=== PATIENT | female | born 1990 | race Caucasian/White ===

== ENCOUNTER 2017-01-01 05:09 | Inpatient (IN) | payer MEDICAID ==
[~2017-01-01] VITALS: Ht 156.2 cm; Wt 71.2 kg
[2017-01-01] VITALS (23 sets, daily range): BP systolic 101–131; BP diastolic 58–84; Ht 156.2 cm; Wt 71.2 kg
[~2017-01-01 05:09] MED LIST: MOTRIN600 MG PO; PERCOCET 5/3251 TA1 PO; PRENATAL COMPLE1 TAB PO
[2017-01-01] MEDS ORDERED: PRENATAL COMPLE1 TAB PO (06:13)
[2017-01-01] MEDS ORDERED: MOTRIN600 MG PO (06:13)
[2017-01-01] MEDS ORDERED: PERCOCET 5-3251 TAB PO (06:14)
[2017-01-01 06:25] LABS: HEMATOCRIT 34.6 % (36.0-48.0); HEMOGLOBIN 10.7 g/dL (12-16); MCH 26.4 pg (26.0-34.0); MCHC 30.9 g/dL (31.0-37.0); MCV 85.2 fL (80.0-100.0); RBC 4.06 10x6/uL (4.00-5.40); RDW 15.7 % (11.5-14.5); WBC 8.4 10x3/uL (4.8-10.8)
[2017-01-01 06:26] LABS: PLATELET COUNT 123 10x3/uL (130-400)
[2017-01-01 06:41] LABS: APPEARANCE CLOUDY (CLEAR); BILIRUBIN NEGATIVE (NEGATIVE); COLOR DK YELLOW (YELLOW); GLUCOSE NEGATIVE (NEGATIVE); KETONE NEGATIVE (NEGATIVE); LEUKOCYTE ESTERASE 1+ (NEGATIVE); NITRITE NEGATIVE (NEGATIVE); PROTEIN NEGATIVE (NEGATIVE); UROBILINOGEN NORMAL (NORMAL)
[2017-01-01 06:42] LABS: BACTERIA MODERATE /hpf (NONE SEEN); EPITHELIAL CELLS 0-5 /hpf (0-5); RED CELLS - URINE 0-5 /hpf (0-5)
--- NOTE | 2017-01-01 08:59 | NUR ---
TO ROOM 1274 VIA BED FROM RR. AWAKE AND VERBAL RESPONSES APPRO TO QUESTIONS. IV RT FOREARM WITH LR WITH 20UNITS PITOCIN AT 125CC/HR PER PUMP. NO O2 AT THIS TIME. ABD DRESSING INTACT. FUNDUS UU/FIRM. SMALL LOCHIA PRESENT - PADS CHANGED. O2 SAT 98-100%. AVALOS CATH INTACT WITH CLEAR YELLOW URINE- 300CC. LEGS REMAIN NUMB.
--- NOTE | 2017-01-01 09:12 | NUR ---
SKI LIFT ATTENDANT DILAUDID SETUP AND PT INSTRUCTED ON USE. PT FAMILY AT BEDSIDE.
--- NOTE | 2017-01-01 09:15 | NUR ---
ICE CAP TO ABD AT INCISION. SCD'S ON.
--- NOTE | 2017-01-01 09:16 | NUR ---
GENTLE MASSAGE-FUNDUS. SMALL CLOT X 1 -FUNDUS UU/FIRM.
--- NOTE | 2017-01-01 09:28 | NUR ---
DENIES PAIN- STATES JUST STARTING TO GET FEELING IN LOWER ABD. PADS CHANGED. SMALL TO MOD LOCHIA NOTED ON PAD.
--- NOTE | 2017-01-01 09:50 | NUR ---
SMALL TO MOD LOCHIA WITH SMALL CLOTS NOTED. PADS CHANGED WITH ASSISTANCE Maury WILSON RN. TILTED TO RT SIDE AND PROPPED WITH PILLOWS.
--- NOTE | 2017-01-01 10:06 | NUR ---
PADS WITHOUT BLEEDING AT THIS TIME. TORADOL GIVEN IVP SLOWLY. PT TALKING WITH FAMILY. NO REQUESTS
--- NOTE | 2017-01-01 10:18 | NUR ---
SMALL LOCHIA NOTED ON PAD- FUNDUS UU- NO CLOTS WITH MASSAGE.
--- NOTE | 2017-01-01 10:46 | NUR ---
STATES PAIN IS BETTER AFTER TORADOL. FUNDAL CHECK DONE- PAD NOTED WITH MOD LOCHIA WITH SEVERAL SMALL CLOTS. Maury FAIR RN ALSO IN ROOM. FUNDUS U1 WITH MASSAGE- FIRM. PADS CHANGED AND WILL CONT TO MONITOR.
--- NOTE | 2017-01-01 11:15 | NUR ---
again fundal check- mod to heavy lochia with massage with small clots. pads changed and remedios care done. nursery in room to see pt. fundus uu post massage. nursery in room with infant.
--- NOTE | 2017-01-01 11:27 | NUR ---
phoned office to report bleeding to dr castillo.
--- NOTE | 2017-01-01 11:38 | NUR ---
dr castillo calls unit and states he will be here shortly to evaluate pt.
--- NOTE | 2017-01-01 11:43 | NUR ---
DR MARTIVE TO PT'S BEDSIDE FOR BLOOD CLOT EVACUATION. SVE PER W/MULTIPLE SMALL BLOOD CLOTS REMOVED MANUALLY PER DR FRANCIS. ESTIMATED VOLUME EVACUATED IS 50-100ML PER DR FRANCIS.ORDERS REC'D TO ADMIN 0.2MG METHERGINE IM NOW AND STAT H&H REPEAT.
--- NOTE | 2017-01-01 11:48 | NUR ---
DILAUDID 0.4MG BOLUS FOR PAIN GIVEN. PT STATES THAT WANTS TO KEEP INFANT IN ROOM.
--- NOTE | 2017-01-01 11:58 | NUR ---
INFANT IN MOTHERS ARMS. SIPPING ON WATER. STATES THAT MEDICATION HAS HELPED AND RATES PAIN A 2-3 ON SCALE OF 0-10. ALSO LOOKING AT CELL PHONE.
--- NOTE | 2017-01-01 12:00 | NUR ---
FUNDAL MASSAGE- NO LOCHIA NO CLOTS. INFANT IN ARMS.
--- NOTE | 2017-01-01 12:16 | NUR ---
LAB FINISHES WITH BLOOD DRAW. PT STATES IS SLEEPY AND A BIT DIZZY. FAMILY NOT IN ROOM AT THIS TIME. PT REQUEST BABY GO TO NURSERY. INFANT TO NURSERY. SCANT LOCHIA NOTED ON PAD- PAD CHANGED. FUNDUS MASSAGED- UU/ NO LOCHIA NO CLOTS WITH MASSAGE. LIGHTS IN ROOM DIMMED FOR PT TO SLEEP.
[2017-01-01 12:24] LABS: HEMATOCRIT 31.9 % (36.0-48.0); MCH 26.3 pg (26.0-34.0); MCHC 31.3 g/dL (31.0-37.0); MCV 83.9 fL (80.0-100.0); RDW 15.6 % (11.5-14.5); WBC 10.5 10x3/uL (4.8-10.8)
[2017-01-01 12:27] LABS: PLATELET COUNT 97 10x3/uL (130-400)
--- NOTE | 2017-01-01 12:38 | NUR ---
pt states feels fine- denies dizziness- states sleepy. fundus uu/ no lochia with gentle massage. report phoned to dr lane at office of hemogram results- hgb,hct and plt count- no new orders.
[2017-01-01 13:02] LABS: PLATELET ESTIMATE DECREASED
--- NOTE | 2017-01-01 13:02 | NUR ---
RINGS CALL LIGHT. CO NAUSEA. EMESIS BASIN GIVEN AND COOL CLOTH.
--- NOTE | 2017-01-01 13:07 | NUR ---
SMALL LOCHIA NOTED ON PAD WITH ONE SMALL CLOT POST EMESIS. DEYSI CARE DONE. PT DENIES NAUSEA NOW- STATES I THINK IT WAS THE SOUP. SIPPING ON ICE WATER. POSITION TO LT TILT. ENCOURAGED TO DEEP BREATH AND COUGH.
--- NOTE | 2017-01-01 13:26 | NUR ---
RESTING WITH EYES CLOSED ON LT SIDE- STATES FEELS BETTER. O2 SAT 97.
--- NOTE | 2017-01-01 14:00 | NUR ---
POSITION CHANGED TO SUPINE. SMALL LOCHIA NOTED ON PAD- NO CLOTS. FUNDUS UU/FIRM. GENTLE MASSAGE- NO CLOTS. DEYSI CARE DONE- PAD CHANGED. ICE CAP TO ABD REPLACED. FAMILY AT BEDSIDE.
--- NOTE | 2017-01-01 14:52 | NUR ---
PT TALKING WITH FAMILY. USING AERODYNAMICS ENGINEER AT WILL. DENIES NEEDS AT THIS TIME.
--- NOTE | 2017-01-01 16:00 | NUR ---
AWAKE FAMILY AT BEDSIDE. STATES THAT IS USING [employer] CONSULTANT NEEDED. SMALL LOCHIA NOTED ON PAD- NO CLOTS. FUNDUS UU/FIRM. PADS CHANGED - POSITIONED TO RT SIDE. ENCOURAGED TO COUGH AND DEEP BREATH - USING INCENTIVE JOSE. DR FRANCIS CALLS UNIT AND REPORT GIVEN PER Maury WILSON RN.
--- NOTE | 2017-01-01 17:00 | NUR ---
SMALL LOCHIA NOTED ON PAD. FUNDUS U1/FIRM.
--- NOTE | 2017-01-01 18:37 | NUR ---
RESTING AT THIS TIME- NO REQUESTS.
--- NOTE | 2017-01-01 19:18 | NUR ---
BEDSIDE REPORT REC'D FROM Daniel SHERIDAN RN. PT REC'D IN HIGH FOWLERS POSITION VISITING WITH FAMILY MEMBERS. PT IS NOW DELIVERED AT 0754 VIA REPEAT . VSS. FUNDUS FIRM, U2 WITH SMALL AMT RUBRA LOCHIA TO PERIPAD, NO CLOTS PRESENT. MEDIPORE DRSG TO LOW TRANSVERSE ABD INCISION CLEAN, DRY, AND INTACT WITH NO DRAINAGE NOTED. PT STATES THAT SHE HAS NOT PASSED FLATUS AT THIS TIME BUT THAT SHE IS BELCHING. PAIN CURRENTLY 6/10 INTERMITTENT ABD CRAMPING AND STINGING/BURNING TO ABD INCISION. ICE PACK PRESENT TO INCISION SITE AT THIS TIME. PT USED PLASTIC MOLDER WITH RN AT . DISCUSSED USE OF TORADOL IN ADDITION TO PLASTIC MOLDER, PT STATES THAT PLASTIC MOLDER IS WORKING WELL FOR HER PAIN AND DOES NOT WISH TO USE TORADOL AT THIS TIME. SPRITE GIVEN PER REQUEST, PT STATES THAT SHE WAS UNABLE TO DRINK BROTH D/T BEING TO SALTY. ADDITIONAL JELLO OFFERED AND PT DECLINED AT THIS TIME. PLAN OF CARE DISCUSSED WITH PT, DENIES QUESTIONS AT THIS TIME, AGREEABLE WITH PLAN OF CARE. BED IN LOW POSITION WITH UPPER SIDE RAILS RAISED X2. CL AND PHONE WITHIN REACH. FAMILY REMAINS AT BEDSIDE AND VERY SUPPORTIVE OF PT. PT VERBALIZES UNDERSTANDING OF CL USE.
--- NOTE | 2017-01-01 19:36 | NUR ---
PIV SL LOCKED PER ORDERS. PAIN MEDICATION ORDERS DISCUSSED WITH PT, VERBALIZED UNDERSTANDING. AVALOS D/C'D ALSO WITH 100 MLS IN UROMETER. TOLERATED WELL. INSTRUCTED TO CALL RN USING TO THE CL IF SHE FELT THE NEED TO VOID, VERBALIZED UNDERSTANDING. EXPLAINED TO PT THAT IF SHE HAD NOT BEEN UP TO VOID BY [id number] THAT RN WOULD ASSIST HER OOB TO BATHROOM, VERBALIZED UNDERSTANDING AND AGREEMENT.
--- NOTE | 2017-01-01 19:45 | NUR ---
PT CALLED VIA CL. RN TO BS. PT VOMITING, 50 MLS CLEAR EMESIS IN EMESIS BASIN. PT STATES THAT SHE FEELS THAT THE MAGNESIUM MILL OPERATOR MEDICATION HAD MADE HER VOMIT BECAUSE SHE BEGAN TO FEEL NAUSEOUS AFTER USING THE BUTTON. PAIN NOW 7/10 TO LOWER ABD, PT REQUESTS IVP TORADOL. ZOFRAN AND TORADOL GIVEN SIVP PER ORDER/REQUEST. FAMILY REMAINS AT BEDSIDE, PT DENIES ADDITIONAL NEEDS AT THIS TIME. BED REMAINS IN LOW POSITION WITH UPPER SIDE RAILS RAISED X2. CL AND PHONE WITHIN PT REACH. WILL CONT TO MONITOR AND ASSIST PRN.
--- NOTE | 2017-01-01 20:20 | NUR ---
PAIN REASSESSMENT COMPLETED. PAIN 10/20. PT REPORTS THAT NAUSEA IS ALSO SUBSIDING. ICE WATER GIVEN PER REQUEST. DENIES ADDITIONAL NEEDS. FAMILY MEMBERS REMAIN AT BEDSIDE AND SUPPORTIVE OF PT. BED IN LOW POSITION WITH UPPER SIDE RAILS RAISED X2. CL AND PHONE REMAIN WITHIN PT REACH.
--- NOTE | 2017-01-01 21:22 | NUR ---
PT CALLS VIA CL. RN TO BS. PT STATES THAT SHE NEEDS TO VOID. RN ASSISTED PT TO EDGE OF BED, PT C/O "FEELING DIZZY," HAD PT SIT ON EDGE OF BED WITH HEAD UP, ENCOURAGED TO DEEP BREATHE. PT REPORTS AFTER A MINUTE AND HALF THAT DIZZINESS PASSED. ASSISTED TO STANDING POSITION, PT AMBULATED TO BATHROOM WITHOUT DIFFICULTY. VOIDED 150 MLS IN HAT, 1 DIME SIZED CLOT PRESENT IN HAT POST VOID. ASSISTED PT WITH PERICARE. PANTIES AND CLEAN PERIPAD GIVEN. LINEN AND GOWN CHANGE DONE. PT AMBULATED BACK TO BED WITH RN ASSIST. PAIN 11/20, DISCUSSED PAIN MEDICATION ORDERS, PT DENIES NEED FOR MEDICATION AT THIS TIME. STATES THAT SHE WILL NOTIFY RN IF SHE NEEDS PAIN MEDICATION. PT REQUESTS BE BROUGHT BACK TO ROOM. STATES THAT HER MOTHER IS STAYING WITH HER AND IS GOING TO HELP HER WITH AT THIS TIME. BED IN LOW POSITION, UPPER SIDE RAILS RAISED X2. CL AND PHONE WITHIN REACH.
--- NOTE | 2017-01-01 21:46 | NUR ---
INFANT BROUGHT TO ROOM BY RN. INSTRUCTED PT THAT NEEDS TO BE FED AT 2300 AND NEEDS TO TAKE 30 MLS AND BE BURPED EVERY 10 MLS, VERBALIZED UNDERSTANDING. ENCOURAGED TO CALL RN FOR ASSISTANCE IF NEEDED WITH FEEDING. PT VERBALIZED UNDERSTANDING. WILL CONT TO MONITOR AND ASSIST PRN.
--- NOTE | 2017-01-01 22:50 | NUR ---
ROUNDS MADE. PT IN SEMI FOWLERS POSITION FEEDING AT THIS TIME. PT REPORTS THAT ANYTIME SHE TRIES TO SIT UP SHE BECOMES DIZZY. DENIES HEADACHE. STATES THAT FEELS IT IS BECAUSE SHE IS DROWSY AND THE PAIN MEDICATION FROM THE PIV. INSTRUCTED TO CALL RN WHEN FINISHED FEEDING INFANT, VERBALIZED UNDERSTANDING. RN WILL DRAW CBC AND CHECK ORTHOSTATIC B/P'S ON PT WHEN SHE FINISHES FEEDING .
--- NOTE | 2017-01-01 23:28 | NUR ---
PT CALLS VIA CL. RN TO BS. PT REQUESTS HELP TO FINISH FEEDING D/T BEING UNABLE TO GET TO WAKE UP. NBN RN TO ROOM TO ASSIST WITH FEEDING INFANT. CBC OBTAINED X1 STICK FROM LEFT A/C. ORTHOSTATIC B/P'S CHECKED. PT STATES THAT SHE IS NOT DIZZY AT THIS TIME. FUNDUS FIRM, U2 SMALL AMT RUBRA LOCHIA NOTED TO PERIPAD, NO CLOTS PRESENT. PT DENIES NEED TO VOID AT THIS TIME, BLADDER NONDISTENDED. PT'S MOTHER AT BEDSIDE AND SUPPORTIVE OF PT. BED IN LOW POSITION WITH UPPER SIDE RAILS RAISED X2. CL AND PHONE WITHIN REACH. WILL CONT TO MONITOR AND ASSIST PRN.
[2017-01-01 23:43] LABS: BASOPHILS 0 % (0-2); EOSINOPHILS 0 % (0-7); HEMATOCRIT 30.5 % (36.0-48.0); HEMOGLOBIN 9.7 g/dL (12-16); IMMATURE GRANULOCYTES 0.2 % (0-5); LYMPHOCYTES 6.5 % (15-50); MCH 26.8 pg (26.0-34.0); MCHC 31.8 g/dL (31.0-37.0); MCV 84.3 fL (80.0-100.0); MONOCYTES 4.2 % (2-11); NEUTROPHILS 89.1 % (40-80); PLATELET COUNT 106 10x3/uL (130-400); RBC 3.62 10x6/uL (4.00-5.40); RDW 15.6 % (11.5-14.5); WBC 9.4 10x3/uL (4.8-10.8)
--- NOTE | 2017-01-02 02:08 | NUR ---
CALLS VIA CL. STATES THAT IS FINISHED FEEDING. REQUEST RN TAKE BACK TO NBN. STATES PAIN 3-11/20, TORADOL OFFERED. DECLINED AT THIS TIME STATING SHE WOULD CALL RN IF PAIN INCREASED. PT'S MOTHER REMAINS AT BEDSIDE SLEEPING. BED IN LOW POSITION WITH UPPER SIDE RAILS RAISED X2. CL AND PHONE WITHIN REACH. WILL CONT TO MONITOR AND ASSIST PRN.
--- NOTE | 2017-01-02 03:19 | NUR ---
ROUNDS MADE. PT RESTING WITH EYES CLOSED. RESPIRATIONS REGULAR, NO S/S OF DISTRESS NOTED. PT'S MOTHER REMAINS AT BEDSIDE SLEEPING. BED IN LOW POSITION WITH UPPER SIDE RAILS RAISED X2. CL AND PHONE WITHIN REACH. IN NBN. WILL CONT TO MONITOR AND ASSIST PRN.
--- NOTE | 2017-01-02 04:22 | NUR ---
RN CALLED TO PT BS. PT REQUESTS SALINE FOR CONTACTS. SALINE SOLUTION PROVIDED TO PT AT THIS TIME. PT DENIES ANY FURTHER NEEDS AT THIS TIME. BED IN LOW POSITION, SIDE RAILS UP TIMES 2, CALL LIGHT AND PHONE IN REACH. WILL CONT TO MONITOR PT STATUS.
[2017-01-02 06:03] VITALS: BP 96/58
--- NOTE | 2017-01-02 06:03 | NUR ---
PT UP TO VOID, 800 MLS IN HAT. AMBULATES BACK TO BED WITH MIN ASSIST. PT REPORTS PAIN 7/10 WHILE GETTING UP OOB AND AMBULATING, PAIN 6/10 WITH RETURN TO BED. PT REQUESTS TORADOL FOR PAIN, GIVEN PER ORDERS. PT REPORTS THAT INCISION IS BURNING AND STINGING AND SHE IS HAVING "PERIOD LIKE CRAMPS." NEW ICE PACK GIVEN. SCD'S REAPPLIED. PT POSITIONED TO LEFT SIDE WITH PILLOW PLACED BEHIND BACK FOR SUPPORT. DENIES ADDITIONAL NEEDS. IN CRIB AT BEDSIDE. PT'S MOTHER REMAINS AT BEDSIDE, VERY SUPPORTIVE OF PT AND ASSISTING WITH CARE OF . VSS. FUNDUS FIRM, U2 WITH SMALL AMT RUBRA LOCHIA, NO CLOTS PRESENT. BED IN LOW POSITION WITH UPPER SIDE RAILS RAISED X2. CL AND PHONE WITHIN PT REACH. WILL CONT TO MONITOR AND ASSIST PRN.
[2017-01-02 06:43] LABS: BASOPHILS 0.1 % (0-2); EOSINOPHILS 0.2 % (0-7); HEMATOCRIT 28.1 % (36.0-48.0); IMMATURE GRANULOCYTES 0.2 % (0-5); LYMPHOCYTES 14.6 % (15-50); MCH 26.9 pg (26.0-34.0); MCV 84.1 fL (80.0-100.0); MEAN PLATELET VOLUME 12.3 fL (7.4-10.4); MONOCYTES 4.8 % (2-11); NEUTROPHILS 80.1 % (40-80); PLATELET COUNT 103 10x3/uL (130-400); RBC 3.34 10x6/uL (4.00-5.40); RDW 15.8 % (11.5-14.5); WBC 8.6 10x3/uL (4.8-10.8)
--- NOTE | 2017-01-02 06:43 | NUR ---
PAIN REASSESSMENT COMPLETED. PT RESTING WITH EYES CLOSED, RESPIRATIONS REGULAR, NO S/S OF DISTRESS NOTED. IN CRIB AT BEDSIDE, PT'S MOTHER IN ROOM WATCHING T.V. BED REMAINS IN LOW POSITION WITH UPPER SIDE RAILS RAISED X2. CL AND PHONE WITHIN REACH. WILL CONT TO MONITOR AND ASSIST PRN.
[2017-01-02 07:25] LABS: RAPID PLASMA REAGIN Non Reactive (Non Reactive)
--- NOTE | 2017-01-02 08:00 | NUR ---
AM ASSESSMENT COMPLETED. PT IS SITTING UP IN THE BED, VISITING WITH VISITOR. PT HAS LARGE WHITE DRESSING OVER C/S INCISION, BANDAGE IS C/D/I. PT HAS PERIPANTIES ON, GOWN ON. IV SITE NOTED, NO REDNESS OR SWELLING. PT STATES SHE WOULD LIKE TO TAKE SOME PAIN MEDICATION WHEN SHE GETS UP TO WALK IN THE HALLWAY LATER ON, DENIES NEEDING SOME NOW. IS ASLEEP IN CRIB AT BEDSIDE, NO DISTRESS NOTED. SR UP X 2, CALL LIGHT AND PHONE WITHIN REACH.
[2017-01-02 08:05] VITALS: BP 102/55
--- NOTE | 2017-01-02 09:15 | NUR ---
TO PT'S ROOM. PT IS SITTING UP IN THE BED, ON CELL PHONE. PT DENIES NEEDS AT THIS TIME. DENIES NEEDING PAIN MEDICATION AT THIS TIME. REMAINS ASLEEP IN CRIB AT BEDSIDE. VISITOR REMAINS IN ROOM SLEEPING OF SOFA. SR UP X 2, CALL LIGHT AND PHONE WITHIN REACH.
--- NOTE | 2017-01-02 10:27 | NUR ---
ROOM CHECK, PT REQUESTS PAIN MEDICATION AT THIS TIME, STATES "I WOULD LIKE TO GET IN THE SHOWER WHEN MY COMES BACK, AND WOULD LIKE TO GO AHEAD AND TAKE SOME MEDICINE NOW". MED ADM RECORD REVIEWED WITH PT. PT REQUESTS TO TAKE IBUPROFEN AND NORCO AT THIS TIME. SEE EMAR FOR ALL MED ADM. SR UP X 2, CALL LIGHT AND PHONE WITHIN REACH. FAMILY AT BEDSIDE.
--- NOTE | 2017-01-02 11:00 | NUR ---
PT REQUESTS TO GET UP TO THE BR, SCD'S REMOVED. PT ASSISTED TO BR, GAIT SLOW AND STEADY. PT VOIDS PER SELF WITHOUT DIFFICULTY, PERICARE DONE PER SELF. PT PROVIDED WITH CLEAN GOWN AND LINENS, TOOTHBRUSH/PASTE, AND COMB, SHAMPOO, PERIPADS. BED LINENS CHANGED WITH ASSIST OF David STOKES RN. PT'S IN BR WITH HER FOR SHOWER. SR UP X 2, CALL LIGHT AND PHONE WITHIN REACH. PT'S FAMILY MEMBER IN ROOM WITH INFANT, ALONG WITH PT'S YOUNG SON.
--- NOTE | 2017-01-02 12:00 | NUR ---
DIETARY SERVES LUNCH TRAY TO PT. PT DENIES OTHER NEEDS AT THIS TIME. FAMILY AT BEDSIDE. SR UP X 2, CALL LIGHT AND PHONE WITHIN REACH.
--- NOTE | 2017-01-02 13:20 | NUR ---
BABY TO NSY IN CRIB BY Gerhard WILL RN. PT IS SITTING UP IN THE BED, WATCHING TV. PT DENIES PAIN OR NEEDS AT THIS TIME. PT WISHES TO REST. SR UP X 2, CALL LIGHT AND PHONE WITHIN REACH.
--- NOTE | 2017-01-02 13:45 | NUR ---
TO ROOM, PT DENIES NEEDING PAIN MEDICATION AT THIS TIME. REQUESTS ICE DELROY TO PLACE OVER INCISION. FRESH ICE DELROY PROVIDED. FAMILY REMAINS AT BEDSIDE. SR UP X 2, CALL LIGHT AND PHONE WITHIN REACH.
[2017-01-02 17:00] VITALS: BP 104/63
--- NOTE | 2017-01-02 17:00 | NUR ---
DIETARY SERVES SUPPER TRAY. PT DENIES NEEDING PAIN MEDICATION OR OTHER NEEDS AT THIS TIME. PT IS SITTING UP IN THE BED, HOLDING . FAMILY AT BEDSIDE. PT INQUIRING ABOUT INCISION HAVING A SMALL AMOUNT OF DRAINAGE ON THE PERIPAD THAT SHE HAS PLACED. PT HAS REMOVED DRESSING WHEN SHE TOOK HER SHOWER EARLIER. INCISION C/D/I. NO DRAINAGE NOTED ON PAD OVER INCISION. ABDOMEN PALPATING SOFT. PT DENIES DIFFICULTY VOIDING, DENIES HEAVY VAGINAL BLEEDING, AND DENIES SOB OR DIFFICULTY BREATHING. PT CONTINUES TO HAVE SCD'S ON. SR UP X 2, CALL LIGHT AND PHONE WITHIN REACH.
--- NOTE | 2017-01-02 17:45 | NUR ---
IV SL, FLUSHES EASILY WITHOUT REDNESS, SWELLING, OR PAIN TO IV SITE. PT DENIES NEEDS AT THIS TIME. FAMILY AT BEDSIDE. SR UP X 2, CALL LIGHT AND PHONE WITHIN REACH.
--- NOTE | 2017-01-02 18:50 | NUR ---
REPORT GIVEN TO 7 P SHIFT.
[2017-01-02 19:10] VITALS: BP 109/67
--- NOTE | 2017-01-02 19:10 | NUR ---
THIS RN TO BEDSIDE FOR SHIFT ASSESSMENT. PT AA&O X 4 SITTING HIGH ELIZONDO'S W/INFANT LYING ON PILLIOW AT PT'S SIDE. PT PAIN ASSESSED. PT RATES PAIN 3/10 WHEN NOT MOVING. BREATHSOUNDS CL\=, ABD SOFT, NON DISTENDED, FUNDUS FIRM,U/1, SMALL LOCHIA REPORTED PER PT. LOW TRANSVERSE INCISION W/RITA C/D/I W/OUT DRAINAGE. PT REPORTS ABLE TO VOID W/OUT DIFFICULTY. PEDAL PULSES PRESENT X 2. GENERALIZED EDEMA NOTED TO LOW EXTREMETIES.SCD WRAPS ON BILATERALLY. WRAPS CONNECTED TO PUMP. PUMP IS ON AND FUNCTIONING. SEE FLOW SHEET FOR COMPLETED SHIFT ASSESSMENT. PT INSTRUCTED THAT SHE WILL NEED TO AMBULATE IN THE [place] TONIGHT BEFORE SHE PLANS TO GO TO SLEEP. PT VERBALIZES UNDERSTANDING AND IS AGREEABLE. INFANT HANDED OFF TO VISITOR IN ROOM AT THIS TIME. DINNER TRAY REMOVED FROM ROOM. FRESH ICE WATER SERVED IN [facility]. PT DENIES FURTHER NEEDS AT THIS TIME. BED LOW, SIDE RAILS UP X 2. CALL LIGHT AND PHONE AT BEDSIDE.
--- NOTE | 2017-01-02 19:40 | NUR ---
PT AMBUALTING IN [place] W/VISITOR AT SIDE. BOTH AMBUALTE TO NURSERY AT THIS TIME.
--- NOTE | 2017-01-02 19:50 | NUR ---
PT RETURNING FROM NURSERY AT THIS TIME. PT APPEARS TO BE IN PAIN. PAIN ASSESSED. PT RATES PAIN 8/10. PAIN MEDICATION OFFERED. PT REQUEST TO RECEIVE BOTH MOTRIN 600MG AND NORCO 10/325MG AT THIS TIME. BOTH MEDS TAKEN TO PT'S ROOM AND ADMINISTERED PO. PT'S SIG OTHER AND CHILD IN ROOM AT THIS TIME. PT RETURNS TO BED. DENIES FURTHER NEEDS AT PRESENT.
--- NOTE | 2017-01-02 20:45 | NUR ---
ROUNDS MADE. PT CURRENTLY SITTING UP IN BED W/VISITOR ASSISTING PT W/PUTTING HER HAIR UP. PAIN AND NEEDS ASSESSSED. PT CURRENTLY RATES PAIN 5/10. DENIES NEEDING FURTHER PAIN INTERVENTIONS AT PRESENT. DENIES NEEDS OTHER THAN [facility] MUG FILLED W/FRESH ICE WATER. [facility] NUG FILLED W/FRESH ICE WATER AND PLACED ON BEDSIDE TABLE AT PT'S BEDSIDE.
--- NOTE | 2017-01-02 21:45 | NUR ---
ROUNDS MADE. PT SITTING UP IN BED VISITING W/MULTIPLE GUESTS AT BEDSIDE. PT PAIN AND NEEDS ASSESSED. PT DENIES NEEDS AT PRESENT. REPORTS PAIN "LESS THAN BEFORE". THISR N QUESTIONS LESS THAN 5/10. PT STATES "YES".
[2017-01-03] VITALS: BP 111/60
--- NOTE | 2017-01-03 | NUR ---
ROUNDS MADE. PT SITTING UP IN BED VISITING W/GUEST. ON A PILLOW AT PT'S SIDE. PAIN AND NEEDS ASSESSED. PT REPORTS SHE HAS NO PAIN AT PRESENT. DENIES PERSONAL NEEDS EXCEPT ADDITIONAL ICE WATER. V/S OBTAINED. SEE FLOWSHEET. PT CURRENTLY HAS SCD WRAPS ON BILATERALLY. WRAPS CONNECTED TO PUMP. PUMP IS ON AND FUNCTIONING. INFANT PLACED IN CRIB AND TRANSPORTED TO NURSERY PER REQUEST OF NBN NURSE Sandy CISSE RN
--- NOTE | 2017-01-03 01:51 | NUR ---
INFANT TRANSPORTED VIA CRIB TO PT'S ROOM FOR FEEDING. PT REPOSITIONS SELF UP IN BED. ID BANDS VERIFIED PER PROTOCOL. INFANT PLACED IN PT'S ARMS. BOTTLE PREPARED AND PROVIDED FOR PT TO FEED INFANT. PT DENIES NEEDS AT PRESENT.
--- NOTE | 2017-01-03 04:00 | NUR ---
ROUNDS MADE. PT RESTING QUIETLY W/EYES CLOSED IN HIGH ELIZONDO'S. RESP EVEN. LYING AT PT'S SIDE PROPPED ON A PILLOW. PT AWAKENED TO INFORM HER THAT IS GOING TO BE TRANSPORTED BACK TO NURSERY WHILE PT SLEEPS. PT DENIES PAIN OR NEEDS AT PRESENT. TRANSPORTED VIA CRIB TO [facility].
[2017-01-03 07:15] VITALS: BP 98/57
--- NOTE | 2017-01-03 07:15 | NUR ---
RECEIVED PT SITTING UP IN BED. CARING FOR INFANT. AAO X 3. VSS. HRRR WITHOUT AUDIBLE MURMUR. BBS CLEAR. BS X 4. ABDOMEN SOFT/NON-DISTENDED. FUNDUS FIRM AT U/U. RUBRA LOCHIA SMALL AMT. NO CLOTS OR HEAVY BLEEDING PER PT STATES. NEG HOMANS' SIGN. PPP. 2+/2+ NON PITTING EDEMA NOTED TO ANKLES/FEET. ABDOMINAL INCISION OPEN TO AIR WITH RITA INTACT. NO REDNESS, SWELLING OR DRAINAGE NOTED TO INCISION. SL TO RIGHT WRIST DC'D PER PT STATES SITE "ITCHING". PRESSURE BANDAGE TO SITE. CATHELON INTACT. PT STATES PASSING GAS. NO BM YET. PT DENIES HEADACHE, VISUAL PROBLEMS, EPIG OR RUQ PAIN. PT DENIES SHORTNESS OF BREATH OR CHEST PAIN. PT C/O INCISIONAL PAIN OF "5" ON 0-10 PAIN SCALE. STATES PAIN IS "STINGING". PT PROVIDED FRESH ICE WATER. SR UPX 2. CALL LIGHT IN REACH.
--- NOTE | 2017-01-03 07:27 | NUR ---
PT C/O STINGING PAIN OF "5" ON 0-10 PAIN SCALE. NORCO 10/325 AND MOTRIN 600 MG GIVEN PO ORDERED. PT INSTRUCTED ON MEDS. VERBALIZES UNDERSTANDING.
--- NOTE | 2017-01-03 08:10 | NUR ---
PT SITTING UP IN BED. VISITS WITH FAMILY MEMBER. DENIES NEEDS OR C/O.
--- NOTE | 2017-01-03 09:31 | NUR ---
PT SITTING UP IN BED. VISITS WITH FAMILY. DENIES C/O OR NEEDS.
--- NOTE | 2017-01-03 10:30 | NUR ---
DR FRANCIS NOTIFIED BEING DISCHARGED TODAY. NEW ORDERS RECEIVED.
[2017-01-03] MEDS ORDERED: HYDROCODONE-APA1 TAB PO (10:52)
[2017-01-03] MEDS ORDERED: IBUPROFEN600 MG PO (10:53)
--- NOTE | 2017-01-03 11:00 | NUR ---
DISCHARGE INSTRUCTIONS GIVEN TO PT. PT VERBALIZES UNDERSTANDING OF ALL INSTRUCTIONS. COPIES GIVEN TO PT. RX FOR NORCO 10/325 AND IBUPROFEN 600 GIVEN TO PT. PT PREPARES FOR DISCHARGE.
--- NOTE | 2017-01-03 11:07 | NUR ---
PT C/O INCISIONAL PAIN OF "5" ON 0-10 PAIN SCALE. NORCO 10/325 GIVEN PO ORDERED. PT INSTRUCTED ON MED. VERBALIZES UNDERSTANDING.
--- NOTE | 2017-01-03 11:15 | NUR ---
PT READY FOR DISCHARGE. DISCHARGED WITH VIA WHEELCHAIR PER AUXILIARY STAFF TO PRIVATE VEHICLE.
== END 2017-01-03 11:15 | disposition home or self-care (01) | DRG 766 ==
LOC: D.LD 05:09 → D.SDCHOLD 07:30 → D.LD 08:54
PROVIDERS: ADMIT Obstetrics & Gynecology
PROC: 10D00Z1 Extraction of Products of Conception, Low, Open Approach (ICD-10-PCS; principal; 2017-01-01 07:30)
DX: O34.219 Maternal care for unspecified type scar from previous cesarean delivery (principal); Z3A.39 39 weeks gestation of pregnancy; Z37.0 Single live birth